=== PATIENT | male | born 1990 | race Caucasian/White ===

== ENCOUNTER 2016-12-01 06:00 | Inpatient (IN) | payer MEDICAID ==
--- NOTE | ~2016-12-01 | PN ---
Unit #: [id number] #: [id number] Patient: RICKY PRESLEY [id number] [facility] [address] [place] [address] [id number] MR#: [id number] NAME: RICKY PRESLEY ROOM: [facility] Age: 25 Sex: M Admission Date: 12/01/2016 : 1990 Attending Physician: Manuel Saxena M.D. Admitting Physician: Manuel Saxena M.D. Primary Care Physician: Primary Care Physician Eve CONTI PROGRESS NOTES DATE 12/02/2016 DISCUSSION Mr. Presley is a 25-year-old, white male who was seen today and chart was reviewed and case was discussed with the staff. He has been anxious, withdrawn and rather seclusive to himself. Meanwhile, he has not been opening up socializing or interacting very much. He has been however taking medications and tolerating them fairly well. MENTAL STATUS EXAM Young white male who was casually dressed with fair personal hygiene, appears to be in no acute distress or discomfort. He was awake and alert with impaired attention and concentration. His mood was anxious with congruent affect. His speech was slow and goal directed. He denies any suicidal or homicidal ideation. Also, denies any auditory or visual hallucinations. His insight and judgement remains slightly impaired. TREATMENT PLAN 1. We will continue him on his current medications and treatment protocol. We will monitor his response to the medication and make further adjustments as needed. 2. We will continue to follow up. Dictated by... Tish Tomlinson/anant TD: 12/03/2016 02:16 JOB #: [id number] Unit #: [id number] #: [id number] Patient: RICKY PRESLEY PROGRESS NOTES Page 1 of 1 X Manuel Saxena MD PROGRESS NOTE
--- NOTE | ~2016-12-01 | HP ---
Unit #: [id number] #: [id number] Patient: CHRIS PRESLEY [id number] [place] [address] [id number] MR#: [id number] NAME: CHRIS PRESLEY ROOM: 32 Age: 25 Sex: M Admission Date: 12/01/2016 : 1990 Attending Physician: Manuel Saxena M.D. Admitting Physician: Manuel Saxena M.D. Primary Care Physician: Primary Care Physician No HISTORY AND PHYSICAL HISTORY OF PRESENT ILLNESS Chris is a 25 year old admitted to [address] [place] [address] because of his illicit drug use which includes methamphetamine. He also verbalizes wanting to hurt himself. PAST MEDICAL HISTORY History of illicit substance abuse to include methamphetamine. PAST SURGICAL HISTORY Nothing reported. ALLERGIES Penicillin. SOCIAL HISTORY Smokes one-half pack per day. Denies alcohol. Admits to using marijuana daily. Has a history of methamphetamine use. FAMILY HISTORY Medically noncontributory. REVIEW OF SYSTEMS CONSTITUTIONAL: No fever or chills. HEENT: Denies any sore throat, ear pain or runny nose. CARDIOVASCULAR: Denies chest pain, irregular heart rhythm or palpitations. CHEST: Denies shortness of breath or cough. No hemoptysis. GASTROINTESTINAL: Denies nausea, vomiting, diarrhea or chronic constipation. ENDOCRINE: Denies history of increased thirst or urination. No recent significant weight loss or gain. GENITOURINARY: Denies dysuria, frequency, or hematuria. SKIN: Denies any rashes. HEMATOLOGIC: Denies history of increased bleeding or bruising. MUSCULOSKELETAL: Denies any hot, swollen joints. No generalized muscle pain. NEUROLOGIC: Denies problems with vision or speech. No frequent, severe headaches. No numbness, tingling or weakness in any extremities. Denies loss of bladder or bowel control. CURRENT MEDICATIONS 1. Thorazine 50 mg q. 6 hours p.r.n. 2. Milk of Magnesia p.r.n. 3. Maalox p.r.n. Unit #: [id number] #: [id number] Patient: CHRIS PRESLEY 4. Tylenol p.r.n. PHYSICAL EXAMINATION GENERAL: Alert, well nourished. No apparent distress. VITAL SIGNS: Blood pressure 144/64, heart rate 86, respirations 16, and temperature 98.6. WEIGHT: 175. HEIGHT: 5 feet 9 inches. SKIN: Warm and dry without rash or lesion. HEENT: Normocephalic. TMs not viewed. Oral and nasal passages clear. Conjunctivae clear. PERRLA. EOMs intact. NECK: Supple without lymphadenopathy or thyromegaly. HEART: Regular rate and rhythm without murmur. LUNGS: Clear. ABDOMEN: Soft, nontender. : Not done. EXTREMITIES: No evidence of cyanosis, clubbing or edema. Moves all without focal deficit. NEUROLOGICAL: Grossly within normal limits. Cranial Nerves: II: Visual pollard are intact. III, IV AND : Extraocular movements are intact. Pupils are equal, round and reactive to light. V: Facial sensation is grossly normal. VII: Facial movements and expression are normal. VIII: Auditory acuity grossly intact. IX, X: Uvula is midline. Phonation is normal. XI: Patient shrugs shoulders and turns head normally. XII: Tongue protrudes in the midline. Sensory and Motor Function: Sensory and motor sensation is grossly normal. Motor: moves all extremities well. Coordination: Gait is normal. Deep Tendon Reflexes: Intact. IMPRESSION Psychiatric admission. RECOMMENDATIONS PSYCHIATRIC: Per psychiatrist. MEDICAL: I see no contraindications to participate in this facility's activities. MEDICAL PROGNOSIS Good. MEDICAL CONDITION Stable. Dictated by... Lori Champion P.A.-C. for Tish Jules/zara TD: 12/02/2016 09:06 JOB #: [id number] Unit #: [id number] #: [id number] Patient: CHRIS PRESLEY HISTORY AND PHYSICAL Page 1 of 1 X Lori Champion HISTORY AND PHYSICAL
--- NOTE | ~2016-12-01 | PA ---
Unit #: [id number] #: [id number] Patient: RICKY PRESLEY [id number] [facility] [address] [place] [address] [id number] I MR#: [id number] NAME: RICKY PRESLEY ROOM: P132 Age: 25 Sex: M Admission Date: 12/01/2016 : 1990 Date of Assessment: 12/01/2016 Attending Physician: Manuel Saxena M.D. Admitting Physician: Manuel Saxena M.D. Primary Care Physician: Primary Care Physician No PSYCHIATRIC ASSESSMENT DATE OF SERVICE 12/01/2016. IDENTIFYING DATA Mr. Presley is a 25-year-old single white male, who is a resident of [place], [place] and was transferred to us from [facility] on a voluntary basis. CHIEF COMPLAINT "I attempted to kill myself by slicing it across the big vein right here." HISTORY OF PRESENT ILLNESS Mr. Presley is a 25-year-old white male, who initially presented to [facility] seeking medical treatment for amphetamine abuse on 11/30/2016 and was not accepted as the patient and left the [facility] before finding a piece of broken glass bottle on the street and attempted to kill himself by slicing across the big vein right here as he described on his left arm and reports that he used unknown amount of methamphetamine the night of 11/30/2016 and self presented to the [facility] on the morning of 12/01/2016 seeking medical detox. He was not accepted as the patient and was sent to [facility] and he reports maintaining thoughts of killing himself with a plan to cut his wrist or overdose on pills that he can get hold of and reports that he has not used methamphetamine today, but he is experiencing significant paranoia particularly towards others plotting against him and reports that he has not slept for 5 days and experiencing visual hallucination of shadows moving around and reports that he has been off his medication of lithium, Haldol, and Cogentin for a week and as such, has been decompensating and was seen to be a significant threat to himself and therefore, recommendation for inpatient level of care for safety and stabilization was made and the patient was transferred to us. SUBSTANCE ABUSE HISTORY The patient reports history of cannabis abuse, more recently he has been on a methamphetamine binge. PAST PSYCHIATRIC HISTORY The patient reports history of inpatient psychiatric hospitalization at [facility] as well as in a facility in [place] and review of the medical records indicate that he has been diagnosed and treated with bipolar disorder and was on a combination of lithium, Haldol, and Cogentin, but has been off the medication and as such, has been Unit #: [id number] #: [id number] Patient: RICKY PRESLEY decompensating. PAST MEDICAL HISTORY The patient's medical history is insignificant. ALLERGIES Penicillin. PERSONAL AND SOCIAL HISTORY A 25-year-old white male, who reports that he is single, unemployed, and has unstable living environment and poor social support system. MENTAL STATUS EXAMINATION Young white male who was casually dressed with fair personal hygiene, appears to be in no acute distress or discomfort. He was awake and alert on interaction with intact orientation to time, place, and person. His mood was anxious and depressed with a congruent affect. His speech was slow and restricted in content. His thought processes were disorganized with some looseness of associations and flight of ideas and paranoid ideations and suicidal ideations. His insight and judgment remain DICTATION ENDS HERE Dictated by... Manuel Saxena M.D. JUICE/johnson TD: 12/02/2016 06:43 JOB #: [id number] PSYCHIATRIC ASSESSMENT Page 1 of 1 X Manuel Saxena MD X PSYCHIATRIC ASSESSMENT
--- NOTE | ~2016-12-01 | PN ---
Unit #: [id number] #: [id number] Patient: RICKY PRESLEY [id number] [facility] [address] [place] [address] [id number] I MR#: [id number] NAME: RICKY PRESLEY ROOM: 32 Age: 25 Sex: M Admission Date: 12/01/2016 : 1990 Attending Physician: Manuel Saxena M.D. Admitting Physician: Manuel Saxena M.D. Primary Care Physician: Primary Care Physician Eve CONTI PROGRESS NOTES DATE 12/03/2016 DISCUSSION Mr. Presley is a 25-year-old white male who was seen today and chart was reviewed and case was discussed with the staff. He has been anxious, withdrawn and rather seclusive to himself. Meanwhile, he has been cooperative with treatment recommendations and has been taking medications and tolerating them fairly well with __ side effects. MENTAL STATUS EXAMINATION Young white male who was casually dressed with fair personal hygiene and appears to be in no acute distress or discomfort. He was awake and alert on interaction with intact orientation. His mood was anxious with auditory or visual hallucinations. His insight and judgement remains slightly impaired. TREATMENT PLAN 1. Will continue on his current medications and treatment protocol. Will monitor response and make further adjustments as needed. 2. Will continue to follow up. Dictated by... Tish Tomlinson/hi TD: 12/03/2016 22:46 JOB #: [id number] Unit #: [id number] #: [id number] Patient: RICKY PRESLEY PROGRESS NOTES Page 1 of 1 X Manuel Saxena MD PROGRESS NOTE
--- NOTE | ~2016-12-01 | DS ---
Unit #: [id number] #: [id number] Patient: RICKY PRESLEY [id number] [facility] [address] [place] [address] [id number] MR#: [id number] NAME: RICKY PRESLEY ROOM: [facility] Age: 25 Sex: M Admission Date: 12/01/2016 : 1990 Discharge Date: 12/07/2016 Attending Physician: Manuel Saxena M.D. Primary Care Physician: Primary Care Physician No DISCHARGE SUMMARY IDENTIFYING DATA Mr. Presley is a 25-year-old single white male, who was self-referred to the hospital on voluntary basis. DISCHARGE DIAGNOSES Psychiatric: Bipolar disorder, most recent episode depressed, recurrent, moderate, with psychosis; methamphetamine dependence, moderate. Medical: None. Stressors: Moderate psychosocial stressors. HISTORY OF PRESENT ILLNESS Please see initial psychiatric evaluation for details. PAST PSYCHIATRIC HISTORY Please see initial psychiatric evaluation for details. PAST MEDICAL HISTORY Please see initial psychiatric evaluation for details. HOSPITAL COURSE [facility] and was oriented to the hospital environment. Routine p.r.n. medications were initiated, and he was started back on his home medications and medications were adjusted, and he was started back on Haldol and lithium, and Cogentin was also given for EPS related side effects, though the patient did not show any evidence of EPS while on the unit; however, he was initially seen to be very anxious, withdrawn, and seclusive to himself with persistent depression and psychosis, but was able to show a fairly decent therapeutic response with improvement in depression and psychosis and was able to come out to participate in treatment related activities and go to therapy groups and was socializing and interacting appropriately and was not seen to be danger to self or anyone else, and as such, it was decided that he will be discharged home and will continue treatment on an outpatient basis. DISCHARGE MEDICATIONS [place] 300 mg b.i.d. for bipolar, Haldol 5 mg b.i.d. for psychosis, and Cogentin 0.5 mg b.i.d. for EPS. DISCHARGE CONDITION Stable. PROGNOSIS Fair. Unit #: [id number] #: [id number] Patient: RICKY PRESLEY Dictated by... Manuel Saxena M.D. IAA/modl TD: 12/07/2016 06:55 JOB #: [id number] DISCHARGE SUMMARY Page 1 of 1 X Manuel Saxena MD DISCHARGE SUMMARY
--- NOTE | ~2016-12-01 | PN ---
Unit #: [id number] #: [id number] Patient: RICKY PRESLEY [id number] [facility] [address] [place] [address] [id number] MR#: [id number] NAME: RICKY PRESLEY ROOM: 32 Age: 25 Sex: M Admission Date: 12/01/2016 : 1990 Attending Physician: Manuel Saxena M.D. Admitting Physician: Manuel Saxena M.D. Primary Care Physician: Primary Care Physician Eve CONTI PROGRESS NOTES DATE 12/04/2016 DISCUSSION Mr. Presley is a 25-year-old white male who was seen today and chart was reviewed and case was discussed with the staff. He has been anxious, withdrawn and rather seclusive to himself. Meanwhile, he has been cooperative with treatment recommendations and has been taking medications and tolerating them fairly well with no reported side effects. MENTAL STATUS EXAMINATION Young white male who was casually dressed with fair personal hygiene and appears to be in no acute distress or discomfort. He was awake and alert on interaction with intact orientation. His mood was anxious with congruent affect. He denies any suicidal or homicidal ideation. His insight and judgement remains slightly impaired. TREATMENT PLAN 1. Will continue on his current medications and treatment protocol. Will monitor his response to the medications and make further adjustments as needed. 2. Will continue to follow up. Dictated by... Tish Tomlinson/hi TD: 12/04/2016 17:52 JOB #: [id number] Unit #: [id number] #: [id number] Patient: RICKY PRESLEY PROGRESS NOTES Page 1 of 1 X Manuel Saxena MD PROGRESS NOTE
--- NOTE | ~2016-12-01 | PN ---
Unit #: [id number] #: [id number] Patient: RICKY PRESLEY [id number] [facility] [address] [place] [address] [id number] MR#: [id number] NAME: RICKY PRESLEY ROOM: 32 Age: 25 Sex: M Admission Date: 12/01/2016 : 1990 Attending Physician: Manuel Saxena M.D. Admitting Physician: Manuel Saxena M.D. Primary Care Physician: Primary Care Physician Eve CONTI PROGRESS NOTES DATE 12/05/2016 DISCUSSION Mr. Presley is a 25-year-old, white male who was seen today and chart was reviewed and case was discussed with the staff. He appears to be doing much better and has been calm and cooperative with treatment recommendations. He has been taking the medication and tolerating them fairly well with no reported side effects. MENTAL STATUS EXAM Young white male who was casually dressed with fair personal hygiene. His mood was anxious with congruent affect. He denies any suicidal or homicidal ideation. His insight and judgement remains slightly impaired. TREATMENT PLAN 1. We will continue him on his current medications and treatment protocol. We will monitor his response to the medication and make further adjustments as needed. 2. We will continue to follow up. Dictated by... Tish Tomlinson/anant TD: 12/06/2016 03:26 JOB #: [id number] Unit #: [id number] #: [id number] Patient: RICKY PRESLEY PROGRESS NOTES Page 1 of 1 X Manuel Saxena MD PROGRESS NOTE
--- NOTE | ~2016-12-01 | PN ---
Unit #: [id number] #: [id number] Patient: RICKY PRESLEY [id number] [facility] [address] [place] [address] [id number] MR#: [id number] NAME: RICKY PRESLEY ROOM: 32 Age: 25 Sex: M Admission Date: 12/01/2016 : 1990 Attending Physician: Manuel Saxena M.D. Admitting Physician: Manuel Saxena M.D. Primary Care Physician: Primary Care Physician Eve CONTI PROGRESS NOTES DATE 12/06/2016 DISCUSSION Mr. Presley is a 25-year-old, white male who was seen today and chart was reviewed and case was discussed with the staff. He has been anxious, withdrawn though has not shown any agitation, irritability or behavioral problems and reports improvement in his depressive symptoms. Meanwhile, he has been taking medications and tolerating them fairly well with no reported side effects. MENTAL STATUS EXAM Young white male who was casually dressed with fair personal hygiene, appears to be in no acute distress or discomfort. He was awake and alert on interaction with intact orientation. His mood was anxious with congruent affect. He denies any suicidal or homicidal ideation. His insight and judgement remains slightly impaired. TREATMENT PLAN 1. We will continue him on his current medications and treatment protocol. We will monitor his response to the medication and make further adjustments as needed. 2. We will continue to follow up. Dictated by... Tish Tomlinson/anant TD: 12/06/2016 23:42 JOB #: [id number] Unit #: [id number] #: [id number] Patient: RICKY PRESLEY PROGRESS NOTES Page 1 of 1 X Manuel Saxena MD X PROGRESS NOTE
== END 2016-12-07 08:45 | disposition home or self-care (01) | DRG 885 ==
LOC: P1S 11:19
DX: F33.1 Major depressive disorder, recurrent, moderate (principal); F15.20 Other stimulant dependence, uncomplicated; F29 Unspecified psychosis not due to a substance or known physiological condition; Z88.0 Allergy status to penicillin; F17.210 Nicotine dependence, cigarettes, uncomplicated